=== PATIENT | male | born 1995 | race Caucasian/White ===

== ENCOUNTER 2020-10-29 20:37 | Emergency (ER) | payer OTHER ==
[~2020-10-29] VITALS: Ht 180 cm; Wt 102.0 kg
[2020-10-29 20:44] VITALS: BP 154/95
--- NOTE | 2020-10-29 21:01 | ED Upper Extremity ---
General Chief Complaint: Upper Extremity Stated Complaint: R HAND PAIN Source: patient Exam Limitations: no limitations History of Present Illness Date Seen by Provider: Oct 29, 2020 Time Seen by Provider: 20:48 Initial Comments This is a well-appearing 25-year-old male who presents to the ER via POV with complaints of right hand pain and right ankle pain. States he was trying to put his pet pig away when he slipped and fell on the wooden floor. Reports tender ness and swelling on the dorsal aspect of his hand near his little finger. Also reports minor pain on the medial aspect of his right foot/ankle region. Denies numbness, tingling, or loss of sensation. No other injuries reported. Onset: just prior to arrival Severity: mild Pain/Injury Location: right 5th finger Method of Injury: fell Allergies and Home Medications Allergies Coded Allergies: No Known Drug Allergies (Unverified , 10/29/20) Home Medications Hydrocodone/Acetaminophen 1 Each Tablet, 1 EACH PO Q6H PRN for PAIN-SEVERE (8- 10) Prescribed by: HUMERA BYRNES on 10/29/207 Patient Home Medication List Home Medication List Reviewed: Yes Review of Systems Constitutional: no symptoms reported EENTM: no symptoms reported Respiratory: no symptoms reported Cardiovascular: no symptoms reported Gastrointestinal: no symptoms reported Genitourinary: no symptoms reported Musculoskeletal: see HPI Skin: no symptoms reported Psychiatric/Neurological: No Symptoms Reported Past Oyukant-Psedyc-Omlvwv Hx Patient Social History Alcohol Use: Denies Use Past Medical History Surgeries: No Respiratory: No Cardiac: No Neurological: No Genitourinary: No Gastrointestinal: No Musculoskeletal: No Endocrine: No HEENT: No Cancer: No Psychosocial: No Integumentary: No Blood Disorders: No Physical Exam Vital Signs Vital Signs - First Documented 10/29/20 20:44 Temp 37.0 Pulse 91 Resp 16 B/P (MAP) 154/95 (114) O2 Delivery Room Air Capillary Refill : Height, Weight, BMI Height: '" Weight: lbs. oz. kg; BMI Method: General Appearance: WD/WN, no apparent distress Cardiovascular: normal peripheral pulses, regular rate, rhythm Respiratory: lungs clear, normal breath sounds Back: normal inspection Shoulder: normal inspection, non-tender, no evidence of injury, normal ROM Elbow/Forearm: normal inspection, non-tender, no evidence of injury, normal ROM Wrist: Yes normal inspection, Yes non-tender, Yes no evidence of injury, Yes normal ROM Hand: Right, bone tenderness (5th MCP), soft tissue tenderness Neurologic/Tendon: normal sensation, normal motor functions, normal tendon functions Neurologic/Psychiatric: no motor/sensory deficits, alert, normal mood/affect, oriented x 3 Skin: normal color, warm/dry; No ecchymosis Progress/Results/Core Measures Results/Orders My Orders Orders - HUMERA BYRNES APRN Hand, Right, 3 Views (10/29/20 20:52) Ankle, Right, 3 Views (10/29/20 21:01) Vital Signs/I&O 10/29/20 20:44 Temp 37.0 Pulse 91 Resp 16 B/P (MAP) 154/95 (114) O2 Delivery Room Air Progress Progress Note : Progress Note Pt. examined. No acute distress. Likely has Boxer fracture of his right 5th MCP. X-rays ordered. Min pain with no swelling to left foot/ankle. States pain is tolerable. X-rays reviewed. Right 5th MCP fracture. Gutter splint placed with 4" orthoglass and 3" john wrap. Tolerated well. Reviewed discharge plan, he is agreeable with plan. Diagnostic Imaging Diagonstic Imaging: Xray Plain Films/CT/US/NM/MRI: ankle Comments NAME: PALOMA SMITH JR [facility] REC#: [id number] PT STATUS: REG ER : 1995 PHYSICIAN: HUMERA BYRNES APRN ADMIT DATE: 10/29/20/ER Signed Date of Exam:10/29/20 ANKLE, RIGHT, 3 VIEWS INDICATION: Right ankle pain along the medial side after turning and hitting ankle on a wooden step. FINDINGS: Three views of the right ankle demonstrate normal ossification. No fracture or dislocation is present. IMPRESSION: Normal right ankle. Dictated by: Dictated on workstation # [id number] Dict: 10/29/202117 Trans: 10/29/202124 [facility] [id number] Interpreted by: BERNARDA OTT MD Electronically signed by: BERNARDA OTT MD 10/29/202124 Diagonstic Imaging: Xray Plain Films/CT/US/NM/MRI: hand Comments NAME: PALOMA SMITH JR [facility] REC#: [id number] PT STATUS: REG ER : 1995 PHYSICIAN: HUMERA BYRNES APRN ADMIT DATE: 10/29/20/ER Signed Date of Exam:10/29/20 HAND, RIGHT, 3 VIEWS INDICATION: Right hand pain. Hit right hand on wooden steps. FINDINGS: Three views of the right hand demonstrates a right 5th metacarpal fracture. IMPRESSION: There is a right 5th metacarpal fracture. Dictated by: Dictated on workstation # [id number] Dict: 10/29/202117 Trans: 10/29/202124 [facility] [id number] Interpreted by: BERNARDA OTT MD Electronically signed by: BERNARDA OTT MD 10/29/202124 Departure Impression Primary Impression: Closed fracture of 5th metacarpal Disposition: HOME, SELF-CARE Condition: Improved Departure-Patient Inst. Decision time for Depature: 21:29 Referrals: NO,LOCAL PHYSICIAN (PCP) Primary Care Physician Patient Instructions: Hand Fracture (DC) Add. Discharge Instructions: 1. Keep injured area elevated above your heart for the first 24-48 hours, this is when most of the swelling will occur. 2. Use ice packs to the area for the first 24-48 hours, 15 minutes at a time. 3. . Keep splint or dressings clean and dry. May cover with plastic bag or Saran wrap to shower. 4. Wear john bandage as directed. Re-wrap at least twice daily. 5. Wrap snugly but loosen it if you feel numbness or tingling. 6. Wiggle toes or fingers often to prevent swelling. 7. If extremity becomes numb, cold, more painful, blanched or discolored or excessively swollen, contact your physician or return to the ER. 8. Return to ER for any new, concerning, or worsening symptoms. 9. Follow up with Orthopedic surgeon of your choice, local providers are listed below. Call office to schedule appointment. 10. Use Tylenol as needed for pain. Use Rosalind-tab 5/325mg tabs as needed for severe/breakthrough pain. Dr. Franco [facility] [address] [place] [id number] [phone] Dr. Scott Valle[facility] [address] [place], [place] [address] [phone] All discharge instructions reviewed with patient and/or family. Voiced un derstanding. Scripts Hydrocodone/Acetaminophen (Hydrocodone-Acetamin 5-325 mg) 1 Each Tablet 1 EACH PO Q6H PRN for PAIN-SEVERE (8-10), #10 TAB 0 Refills Prov: HUMERA BYRNES MICROFILM TECHNICIAN 10/29/20 HUMERA BYRNES MICROFILM TECHNICIAN Oct 29, 2020 21:01
--- NOTE | 2020-10-29 21:22 | Diagnostic Imaging Report ---
INDICATION: Right hand pain. Hit right hand on wooden steps. FINDINGS: Three views of the right hand demonstrates a right 5th metacarpal fracture. IMPRESSION: There is a right 5th metacarpal fracture. Dictated by: Dictated on workstation # [id number]
--- NOTE | 2020-10-29 21:24 | Diagnostic Imaging Report ---
INDICATION: Right ankle pain along the medial side after turning and hitting ankle on a wooden step. FINDINGS: Three views of the right ankle demonstrate normal ossification. No fracture or dislocation is present. IMPRESSION: Normal right ankle. Dictated by: Dictated on workstation # [id number]
[2020-10-29] MEDS ORDERED: ACHD5005 PO (21:35)
[2020-10-29] MEDS ORDERED: RX-HYDROCODONE/APAP 5/325 MG #4 TAB PK PO ONE (22:12)
== END 2020-10-29 22:10 | disposition home or self-care (01) ==
LOC: EDUNIT# 20:37 → ER 20:40
DX: S62.306A Unspecified fracture of fifth metacarpal bone, right hand, initial encounter for closed fracture (principal); W01.0XXA Fall on same level from slipping, tripping and stumbling without subsequent striking against object, initial encounter
CPT/HCPCS: 24675; 73130; 73610